=== PATIENT | female | born 1995 | race Hispanic/Latino ===

== ENCOUNTER 2021-11-27 21:43 | Emergency (ER) | payer BC ==
[~2021-11-27] VITALS: Ht 180.3 cm; Wt 115.7 kg
[2021-11-27 22:26] LABS: BASOPHILS % (AUTO) 0.3 % (0.0-5.0); EOSINOPHILS % (AUTO) 0.5 % (0.0-8.0); HEMATOCRIT 37.5 % (36-48); LYMPHOCYTES % (AUTO) 22.4 % (21.0-51.0); MEAN CORPUSCULAR HEMOGLOBIN 26.9 pg (27.0-33.0); MEAN CORPUSCULAR HGB CONC 33.6 g/dL (32.0-36.0); MEAN CORPUSCULAR VOLUME 80.1 fL (79-99); MONOCYTES % (AUTO) 5.9 % (3.0-13.0); NEUTROPHILS % (AUTO) 70.6 % (40.0-77.0); PLATELET COUNT (AUTO) 232 K/uL (130-400); RED BLOOD CELL COUNT(AUTO) 4.68 MIL/uL (4.00-5.50); RED CELL DISTRIBUTION WIDTH 13.2 % (11.0-15.5); WHITE BLOOD COUNT (AUTO) 11.1 K/uL (4.8-10.8)
[2021-11-27] MEDS ORDERED: KETOROLAC 15MG/ML VIAL (15MG/ML) IV ONE (22:30)
[2021-11-27] MEDS ORDERED: MORPHINE 2 MG SYG IVP ONE (22:30)
[2021-11-27] MEDS ORDERED: ONDANSETRON 4MG INJ IVP ONE (22:30)
[2021-11-27] MEDS ORDERED: LIDOCAINE HCL 1% 20 ML VIAL INJ ONE (22:30)
[2021-11-27 22:41] LABS: ALBUMIN 3.3 g/dL (3.5-5.0); CREATININE 0.8 mg/dL (0.5-1.5); HEMOGLOBIN A1C 10.5 % (4.0-6.0); POTASSIUM 3.7 mmol/L (3.5-5.1)
[2021-11-27 22:44] LABS: TOTAL PROTEIN, SERUM 7.6 g/dL (6.0-8.3)
[2021-11-27] MEDS ORDERED: METF-446 PO (23:54)
[2021-11-28] VITALS: BP 146/89
== END 2021-11-28 00:24 | disposition home or self-care (01) ==
LOC: EDH 21:43
DX: L05.01 Pilonidal cyst with abscess (principal); E11.65 Type 2 diabetes mellitus with hyperglycemia; Z79.1 Long term (current) use of non-steroidal anti-inflammatories (NSAID); Z79.84 Long term (current) use of oral hypoglycemic drugs
CPT/HCPCS: 10080; 99284; 96374; 96375; 83036; 80053; 84703; 85025; 36415; J2405; J1885